=== PATIENT | female | born 1955 | race Caucasian/White ===

== ENCOUNTER → 2023-09-02 | Outpatient (REF) | payer MEDICARE | LOC: DX 12:20 | PROVIDERS: ATTEND Nurse Practitioner Gerontology | DX: M85.88 Other specified disorders of bone density and structure, other site (principal); N95.9 Unspecified menopausal and perimenopausal disorder | CPT/HCPCS: 77080 ==

== ENCOUNTER → 2023-12-17 | Outpatient (REF) | payer MEDICARE ==
[~2023-12-17] MED LIST: GADOBENATE DIMEGLUMINE 1 ML IV ONE
== END ==
LOC: MRI 08:44
PROVIDERS: ATTEND Optometrist
DX: H53.2 Diplopia (principal); B02.39 Other herpes zoster eye disease
CPT/HCPCS: 70553

== ENCOUNTER → 2023-12-20 | Outpatient (REF) | payer MEDICARE ==
[~2023-12-20] MED LIST changes: -GADOBENATE DIMEGLUMINE 1 ML IV ONE; +IOPAMIDOL 370 MG/ML 100 ML INFUS..BTL INJ ONE
[2023-12-20 10:50] LABS: CREATININE, SERUM 0.91 mg/dL (0.57-1.11)
== END ==
LOC: CT 09:21
PROVIDERS: ATTEND Optometrist
DX: H53.2 Diplopia (principal); B02.39 Other herpes zoster eye disease
CPT/HCPCS: 36415; 70481; 82565; 84520; Q9967